=== PATIENT | male | born 1995 | race Caucasian/White ===

== ENCOUNTER 2017-10-25 18:12 | Emergency (ER) | payer SELFPAY ==
--- NOTE | 2017-10-25 21:33 | XR ---
EXAMINATION TYPE: XR chest 2V DATE OF EXAM: 10/25/2017 COMPARISON: 09/03/2015 HISTORY: Chest pain TECHNIQUE: Frontal and lateral views of the chest are obtained. FINDINGS: There is no focal air space opacity, pleural effusion, or pneumothorax seen. The cardiac silhouette size is within normal limits. The osseous structures are intact. IMPRESSION: No acute cardiopulmonary process.
[2017-10-25 21:41] VITALS: RESP 18
--- NOTE | 2017-10-25 22:05 | ED ---
General Adult HPI - General Chief complaint: Shortness of Breath Stated complaint: SOB/Cold Time Seen by Provider: 10/25/17 21:03 Source: patient Mode of arrival: ambulatory Limitations: no limitations - History of Present Illness Initial comments: 22-year-old male patient presents to the emergency department today for evaluation of a sharp stabbing pain in the left lung while breathing. He states that this started yesterday evening. States whenever he attempts to take a deep breath the pain shoots through to his back. He states very sharp pain. He denies any fevers or chills with this. States he was ill with upper respiratory symptoms and cough a couple of weeks ago. He denies any current cough or hemoptysis. He denies any sweats, nausea, vomiting, dizziness, or weakness. Patient denies any recent rash, shortness breath, abdominal pain, diarrhea, constipation, back pain, numbness, tingling, hematuria, dysuria, urinary urgency, urinary frequency, headache, visual changes, or any other complaints. - Related Data Previous Rx's Medication Instructions Recorded Ibuprofen [Motrin] 600 mg PO Q8HR PRN #30 tab 10/25/17 Allergies Allergy/AdvReac Type Severity Reaction Status Date / Time amoxicillin Allergy Unknown Verified 10/25/17 20:45 Childhood Penicillins Allergy Unknown Verified 10/25/17 20:45 Childhood Review of Systems ROS Statement: Those systems with pertinent positive or pertinent negative responses have been documented in the HPI. ROS Other: All systems not noted in ROS Statement are negative. Past Medical History Past Medical History: No Reported History History of Any Multi-Drug Resistant Organisms: None Reported Past Surgical History: Ear Surgery Additional Past Surgical History / Comment(s): cyst removal behind left ear 2004 Past Psychological History: Anxiety Smoking Status: Current every day smoker Past Alcohol Use History: Rare Past Drug Use History: Marijuana General Exam Limitations: no limitations General appearance: alert, in no apparent distress, other (This is a well- developed, well-nourished 22-year-old male patient in no acute distress. Vital signs upon presentation were temperature 98.4F, pulse 63, respirations 20, blood pressure 114/57, pulse ox 100% on room air.) Eye exam: Present: normal appearance, PERRL, EOMI. Absent: scleral icterus, conjunctival injection, periorbital swelling ENT exam: Present: normal exam, normal oropharynx, mucous membranes moist Respiratory exam: Present: normal lung sounds bilaterally. Absent: respiratory distress, wheezes, rales, rhonchi, stridor, chest wall tenderness Cardiovascular Exam: Present: regular rate, normal rhythm, normal heart sounds. Absent: systolic murmur, diastolic murmur, rubs, gallop, clicks GI/Abdominal exam: Present: soft, normal bowel sounds. Absent: distended, tenderness, guarding, rebound, rigid Neurological exam: Present: alert, oriented X3, CN II-XII intact Psychiatric exam: Present: normal affect, normal mood Skin exam: Present: warm, dry, intact, normal color. Absent: rash Course Vital Signs 10/25/17 10/25/17 10/25/17 18:48 21:33 22:13 Temperature 98.4 F 98.9 F Pulse Rate 63 65 69 Respiratory 20 18 18 Rate Blood Pressure 114/57 153/60 125/69 O2 Sat by Pulse 100 98 98 Oximetry EKG Findings - EKG Comments: EKG Findings:: EKG obtained at 2111 shows sinus bradycardia with a ventricular rate of 59, MT interval 126, QRS duration 96, QT 406, QTC 401. No evidence of ST elevation or depression. Medical Decision Making - Medical Decision Making 22-year-old male patient presented to the emergency department today for evaluation of left-sided chest pain with breathing. Physical examination is unremarkable, lungs are clear with good air movement. Patient is afebrile. Chest x-ray is clear for any acute cardiopulmonary process. EKG shows sinus bradycardia with no ectopy. Patient had a PERC score of 0. Symptoms are consistent with pleurisy. He is instructed take anti-inflammatory pain medication. He is instructed to follow up with his primary care physician for recheck in 1-2 days. Instructed to return here immediately for any new, worsening, or concerning symptoms. He verbalizes understanding and agrees with this plan. - Radiology Data Radiology results: report reviewed, image reviewed Two-view x-ray of the chest shows no focal airspace opacity, pleural effusion, or pneumothorax. The cardiac silhouette size is within normal limits. The osseous structures are intact. Impression by Dr. Archer shows no acute cardiopulmonary process. Disposition Clinical Impression: Pleurisy Disposition: HOME SELF-CARE Condition: Good Instructions: Pleurisy (ED) Additional Instructions: Take medications as directed. Increase fluids. Follow-up with your primary care physician for recheck in 1-2 days. Return here immediately for any new, worsening, or concerning symptoms. Prescriptions: Ibuprofen [Motrin] 600 mg PO Q8HR PRN #30 tab PRN Reason: Pain Referrals: Rosa M Samuels MD [Primary Care Provider] - 1-2 days Time of Disposition: 22:05
[2017-10-25 22:14] VITALS: BP 125/69; PULSE 69; TEMP 98.9
== END 2017-10-25 22:12 | disposition home or self-care (01) ==
LOC: EC 18:12
DX: R09.1 Pleurisy (principal); F17.200 Nicotine dependence, unspecified, uncomplicated; Z88.0 Allergy status to penicillin
CPT/HCPCS: 71046; 93005; 99285

== ENCOUNTER 2021-11-04 23:13 | Emergency (ER) | payer OTHER ==
[2021-11-04 23:18] VITALS: BP 145/82; PULSE 112; RESP 20; TEMP 100.5
[2021-11-04] MEDS ORDERED: ACETAMINOPHEN TAB 500 MG TAB PO STA (23:21)
--- NOTE | 2021-11-04 23:31 | XR ---
EXAMINATION TYPE: XR chest 2V DATE OF EXAM: 11/04/2021 COMPARISON: 10/25/2017 HISTORY: Cough TECHNIQUE: FINDINGS: Heart and mediastinum are normal. Lungs are clear. Diaphragm is normal. Bony thorax appears normal. IMPRESSION: Normal chest. No change.
--- NOTE | 2021-11-05 00:35 | ED ---
General Adult HPI - General Chief complaint: Upper Respiratory Infection Stated complaint: ENT, Abdominal/Back Pain Time Seen by Provider: 11/05/21 00:23 Source: patient Mode of arrival: ambulatory Limitations: no limitations - History of Present Illness Initial comments: 26-year-old male presents to the emergency room for a chief complaint of not feeling well. Patient states today he ate a chocolate for lunch and vomited. Patient states since then he has felt very fatigued and unwell. Patient states his just tested positive for COVID-19. Patient denies any fevers.Patient has no other complaints at this time including shortness of breath, chest pain, abdominal pain, nausea or vomiting, headache, or visual changes. - Related Data Previous Rx's Medication Instructions Recorded Ibuprofen [Motrin] 600 mg PO Q8HR PRN #30 tab 10/25/17 Allergies Allergy/AdvReac Type Severity Reaction Status Date / Time amoxicillin Allergy Unknown Verified 11/04/21 23:18 Childhood Penicillins Allergy Unknown Verified 11/04/21 23:18 Childhood Review of Systems ROS Statement: Those systems with pertinent positive or pertinent negative responses have been documented in the HPI. ROS Other: All systems not noted in ROS Statement are negative. Past Medical History Past Medical History: No Reported History History of Any Multi-Drug Resistant Organisms: None Reported Past Surgical History: Ear Surgery Additional Past Surgical History / Comment(s): cyst removal behind left ear 2004 Past Psychological History: Anxiety Smoking Status: Never smoker Past Alcohol Use History: Rare Past Drug Use History: Marijuana General Exam Limitations: no limitations General appearance: alert, in no apparent distress Head exam: Present: atraumatic Eye exam: Present: normal appearance, PERRL, EOMI. Absent: scleral icterus ENT exam: Present: normal exam, mucous membranes moist Neck exam: Present: normal inspection, full ROM. Absent: tenderness Respiratory exam: Present: normal lung sounds bilaterally. Absent: respiratory distress, wheezes Cardiovascular Exam: Present: regular rate, normal rhythm, normal heart sounds GI/Abdominal exam: Present: soft, normal bowel sounds. Absent: distended, tenderness Course Vital Signs 11/04/21 23:16 Temperature 100.5 F H Pulse Rate 112 H Respiratory 20 Rate Blood Pressure 145/82 O2 Sat by Pulse 98 Oximetry Medical Decision Making - Medical Decision Making Vitals are stable. Patient has a low-grade fever with mild or flex or tachycardia, given Tylenol. Tested positive for COVID-19. Chest x-ray negative for pneumonia. Patient does not qualify for antibody infusion given we are currently using [place] prioritization criteria. At this time patient will be discharged to follow-up with primary care and will return for any worsening symptoms. - Lab Data Lab Results 11/04/21 Range/Units 23:21 Coronavirus (PCR) Detected A (Not Detectd) Disposition Clinical Impression: COVID Disposition: HOME SELF-CARE Condition: Good Instructions (If sedation given, give patient instructions): Coronavirus Di 2018 (COVID-19) Additional Instructions: Take Motrin and Tylenol for fever. Take vitamin C, D, and zinc. Drink plenty of fluids. Follow-up with your doctor. Return to the emergency room for any worsening symptoms. Is patient prescribed a controlled substance at d/c from ED?: No Referrals: Ron Villareal MD [STAFF PHYSICIAN] - 1-2 days Time of Disposition: 00:35
== END 2021-11-05 00:42 | disposition home or self-care (01) ==
LOC: EC 23:13
DX: U07.1 COVID-19 (principal); F12.90 Cannabis use, unspecified, uncomplicated
CPT/HCPCS: 71046; 87635; 99283

== ENCOUNTER 2021-12-08 15:04 | Emergency (ER) | payer OTHER ==
[2021-12-08 15:50] LABS: Basophils # (A) 0.1 k/uL (0-0.2); Basophils % (A) 0 %; Eosinophils # (A) 0.2 k/uL (0-0.7); Eosinophils % (A) 2 %; HCT 47.6 % (39.0-53.0); HGB 16.2 gm/dL (13.0-17.5); Lymphocytes # (A) 0.7 k/uL (1.0-4.8); Lymphocytes % (A) 5 %; MCH 32.7 pg (25.0-35.0); MCHC 33.9 g/dL (31.0-37.0); MCV 96.2 fL (80.0-100.0); Mean Platelet Volume 7.7; Monocytes # (A) 0.5 k/uL (0-1.0); Monocytes % (A) 4 %; Neutrophils # (A) 11.7 k/uL (1.3-7.7); Neutrophils % (A) 88 %; Platelet Count 227 k/uL (150-450); RBC 4.95 m/uL (4.30-5.90); RDW 12.1 % (11.5-15.5); WBC 13.3 k/uL (3.8-10.6)
[2021-12-08 16:10] LABS: ALT 29 U/L (4-49); AST 24 U/L (17-59); African American GFR (CKD) >90 (>60 ml/min/1.73 sqM); Albumin 5.1 g/dL (3.5-5.0); Alkaline Phosphatase 76 U/L (38-126); Amylase 42 U/L (30-110); Anion Gap 13 mmol/L; Blood Urea Nitrogen 14 mg/dL (9-20); Calcium 10.1 mg/dL (8.4-10.2); Carbon Dioxide 24 mmol/L (22-30); Chloride 101 mmol/L (98-107); Glucose 121 mg/dL (74-99); Lipase 19 U/L (23-300); Non-African American GFR(CKD) >90 (>60 ml/min/1.73 sqM); Potassium 3.8 mmol/L (3.5-5.1); Sodium 138 mmol/L (137-145); Total Protein 8.3 g/dL (6.3-8.2)
[2021-12-08] MEDS ORDERED: ONDANSETRON ODT 4 MG TAB PO STA (18:45)
[2021-12-08] MEDS ORDERED: ACETAMINOPHEN TAB 325 MG TAB PO STA (18:45)
[2021-12-08] MEDS ORDERED: IBUPROFEN 600 MG TAB PO STA (18:50)
--- NOTE | 2021-12-08 18:53 | ED ---
General Adult HPI - General Chief complaint: Nausea/Vomiting/Diarrhea Stated complaint: Vomiting, Diarrhea Time Seen by Provider: 12/08/21 18:45 Source: patient, RN notes reviewed, old records reviewed Mode of arrival: ambulatory Limitations: no limitations - History of Present Illness Initial comments: Well-appearing 26-year-old male presents ambulatory to the emergency room with complaints of nausea, vomiting and diarrhea that started at 6 PM last night. Patient states that his and 1-year-old child were also sick yesterday with similar symptoms but have resolved today. He was concerned that this may be food poisoning. He has not had any Tylenol or Motrin today for fevers. He has no medical history. No surgical history. -: days(s) (1) Location: abdomen Severity scale (1-10): 4 Quality: sharp Consistency: intermittent Improves with: none Worsens with: none Associated Symptoms: fever/chills, nausea/vomiting, other (diarrhea) Treatments Prior to Arrival: none - Related Data Home Medications Medication Instructions Recorded Confirmed No Known Home Medications 12/08/21 12/08/21 Allergies Allergy/AdvReac Type Severity Reaction Status Date / Time amoxicillin Allergy Unknown Verified 12/08/21 19:38 Childhood mint Allergy Throat Verified 12/08/21 19:38 Swelling Penicillins Allergy Unknown Verified 12/08/21 19:38 Childhood Review of Systems ROS Statement: Those systems with pertinent positive or pertinent negative responses have been documented in the HPI. ROS Other: All systems not noted in ROS Statement are negative. Past Medical History Past Medical History: No Reported History History of Any Multi-Drug Resistant Organisms: None Reported Past Surgical History: Ear Surgery Additional Past Surgical History / Comment(s): cyst removal behind left ear 2004 Past Psychological History: Anxiety Smoking Status: Never smoker Past Alcohol Use History: Occasional Past Drug Use History: Marijuana General Exam Limitations: no limitations General appearance: alert, in no apparent distress Head exam: Present: atraumatic Eye exam: Present: normal appearance. Absent: scleral icterus, conjunctival injection ENT exam: Present: normal exam, normal oropharynx, mucous membranes moist Neck exam: Present: normal inspection, full ROM. Absent: tenderness, meningis mus, lymphadenopathy, thyromegaly Respiratory exam: Present: normal lung sounds bilaterally. Absent: respiratory distress Cardiovascular Exam: Present: tachycardia, normal heart sounds GI/Abdominal exam: Present: soft. Absent: distended, tenderness, guarding, rebound, rigid, mass Extremities exam: Present: normal capillary refill. Absent: tenderness, pedal edema Back exam: Present: normal inspection, full ROM. Absent: tenderness, CVA tenderness (R), CVA tenderness (L), rash noted Neurological exam: Present: alert, oriented X3, normal gait Psychiatric exam: Present: normal affect, normal mood Skin exam: Present: warm, dry, intact, normal color. Absent: cyanosis, diaphoretic, petechiae, pallor Course Vital Signs 12/08/21 12/08/21 12/08/21 15:32 19:04 19:32 Temperature 101.2 F H 98.6 F Pulse Rate 120 H 102 H 107 H Respiratory 20 18 16 Rate Blood Pressure 123/75 133/95 135/81 O2 Sat by Pulse 96 96 Oximetry Medical Decision Making - Medical Decision Making Well-appearing 26-year-old male presents with fever, nausea, vomiting and diarrhea that started at 6 PM last night. He states his and 1-year-old child were also sick yesterday with similar symptoms but have resolved today. White blood cell count is 13.3 likely related to his excessive vomiting and diarrhea over the past 20 hours. Patient denies abdominal pain. Abdomen is soft. Influenza and covid swabs are negative. Patient is tolerating oral fluids after zofran at this time. He was directed to return to the emergency room with any new or concerning symptoms including fever with right lower quadrant abdominal pain or inability keep any food or fluids down. Patient is agreeable to this plan of care. Case discussed with Dr. Sepulveda. Vital signs are stable at discharge - Lab Data Result diagrams: 12/08/21 15:42 12/08/21 15:42 Lab Results 12/08/21 12/08/21 12/08/21 Range/Units 15:42 15:42 15:42 WBC 13.3 H (3.8-10.6) k/uL RBC 4.95 (4.30-5.90) m/uL Hgb 16.2 (13.0-17.5) gm/dL Hct 47.6 (39.0-53.0) % MCV 96.2 (80.0-100.0) fL MCH 32.7 (25.0-35.0) pg MCHC 33.9 (31.0-37.0) g/dL RDW 12.1 (11.5-15.5) % Plt Count 227 (150-450) k/uL MPV 7.7 Neutrophils % 88 % Lymphocytes % 5 % Monocytes % 4 % Eosinophils % 2 % Basophils % 0 % Neutrophils # 11.7 H (1.3-7.7) k/uL Lymphocytes # 0.7 L (1.0-4.8) k/uL Monocytes # 0.5 (0-1.0) k/uL Eosinophils # 0.2 (0-0.7) k/uL Basophils # 0.1 (0-0.2) k/uL Sodium 138 (137-145) mmol/L Potassium 3.8 (3.5-5.1) mmol/L Chloride 101 (98-107) mmol/L Carbon Dioxide 24 (22-30) mmol/L Anion Gap 13 mmol/L BUN 14 (9-20) mg/dL Creatinine 0.77 (0.66-1.25) mg/dL Est GFR (CKD-EPI)AfAm >90 (>60 ml/min/1.73 sqM) Est GFR (CKD-EPI)NonAf >90 (>60 ml/min/1.73 sqM) Glucose 121 H (74-99) mg/dL Calcium 10.1 (8.4-10.2) mg/dL Total Bilirubin 1.0 (0.2-1.3) mg/dL AST 24 (17-59) U/L ALT 29 (4-49) U/L Alkaline Phosphatase 76 (38-126) U/L Total Protein 8.3 H (6.3-8.2) g/dL Albumin 5.1 H (3.5-5.0) g/dL Amylase 42 (30-110) U/L Lipase 19 L (23-300) U/L Coronavirus (PCR) Not Detected (Not Detectd) Influenza Type A RNA (Not Detectd) Influenza Type B (PCR) (Not Detectd) 12/08/21 Range/Units 18:52 WBC (3.8-10.6) k/uL RBC (4.30-5.90) m/uL Hgb (13.0-17.5) gm/dL Hct (39.0-53.0) % MCV (80.0-100.0) fL MCH (25.0-35.0) pg MCHC (31.0-37.0) g/dL RDW (11.5-15.5) % Plt Count (150-450) k/uL MPV Neutrophils % % Lymphocytes % % Monocytes % % Eosinophils % % Basophils % % Neutrophils # (1.3-7.7) k/uL Lymphocytes # (1.0-4.8) k/uL Monocytes # (0-1.0) k/uL Eosinophils # (0-0.7) k/uL Basophils # (0-0.2) k/uL Sodium (137-145) mmol/L Potassium (3.5-5.1) mmol/L Chloride (98-107) mmol/L Carbon Dioxide (22-30) mmol/L Anion Gap mmol/L BUN (9-20) mg/dL Creatinine (0.66-1.25) mg/dL Est GFR (CKD-EPI)AfAm (>60 ml/min/1.73 sqM) Est GFR (CKD-EPI)NonAf (>60 ml/min/1.73 sqM) Glucose (74-99) mg/dL Calcium (8.4-10.2) mg/dL Total Bilirubin (0.2-1.3) mg/dL AST (17-59) U/L ALT (4-49) U/L Alkaline Phosphatase (38-126) U/L Total Protein (6.3-8.2) g/dL Albumin (3.5-5.0) g/dL Amylase (30-110) U/L Lipase (23-300) U/L Coronavirus (PCR) (Not Detectd) Influenza Type A RNA Not Detected (Not Detectd) Influenza Type B (PCR) Not Detected (Not Detectd) Disposition Clinical Impression: Nausea vomiting and diarrhea, Fever Disposition: HOME SELF-CARE Condition: Good Instructions (If sedation given, give patient instructions): Acute Nausea and Vomiting (ED), Acute Diarrhea (ED) Additional Instructions: Increase your fluid intake. Follow-up with your primary care doctor next week. Return to the emergency room with any new or concerning symptoms including fever with right lower quadrant abdominal pain or inability to keep food or fluids down. Is patient prescribed a controlled substance at d/c from ED?: No Referrals: None,Stated [Primary Care Provider] - 1-2 days Time of Disposition: 19:34
[2021-12-08 19:33] VITALS: BP 135/81; PULSE 107; RESP 16; TEMP 98.6
[2021-12-08] MEDS ORDERED: ONDANSETRON 4 MG ODT STARTER PACK 2 TAB BTL PO STA (19:34)
== END 2021-12-08 19:44 | disposition home or self-care (01) ==
LOC: EC 15:04
DX: R19.7 Diarrhea, unspecified (principal); R11.2 Nausea with vomiting, unspecified; R50.9 Fever, unspecified; Z20.822 Contact with and (suspected) exposure to COVID-19; F41.9 Anxiety disorder, unspecified; F12.90 Cannabis use, unspecified, uncomplicated; Z88.0 Allergy status to penicillin
CPT/HCPCS: 36415; 80053; 82150; 83690; 85025; 87502; 87635; 99284

== ENCOUNTER 2022-03-19 01:09 | Emergency (ER) | payer OTHER ==
[2022-03-19 01:19] VITALS: TEMP 97.6
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
--- NOTE | 2022-03-19 02:15 | XR ---
EXAMINATION TYPE: XR knee complete LT DATE OF EXAM: 03/19/2022 COMPARISON: NONE HISTORY: Pain TECHNIQUE: 3 views FINDINGS: I see no fracture nor dislocation. Joint spaces are normal. No sign of joint effusion. IMPRESSION: Negative left knee exam.
[2022-03-19 02:56] VITALS: BP 136/90; PULSE 64; RESP 16
== END 2022-03-19 02:22 | disposition home or self-care (01) ==
LOC: EC 01:09
DX: S80.02XA Contusion of left knee, initial encounter (principal); Z88.0 Allergy status to penicillin; Z88.8 Allergy status to other drugs, medicaments and biological substances; W22.8XXA Striking against or struck by other objects, initial encounter
CPT/HCPCS: 99283

== ENCOUNTER 2022-08-07 21:06 | Emergency (ER) | payer OTHER ==
[2022-08-07 21:39] VITALS: BP 122/75; PULSE 66; RESP 18; TEMP 98.4
[2022-08-07] MEDS ORDERED: DIPH,PERTUS(ACELL)TETVAC-LF 0.5 ML VIAL IM ONE (23:18)
[2022-08-07] MEDS ORDERED: ACETAMINOPHEN TAB 325 MG TAB PO STA (23:18)
--- NOTE | 2022-08-07 23:25 | ED ---
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 No loss of consciousness. Patient states increased headache today. Did not take any Tylenol or Motrin prior to arrival. Unsure of his tetanus shot is up-to-date MD Complaint: head injury -: days(s) (1) Mechanism of Injury: other (hit head at work yesterday) Location: parietal Loss of Consciousness: no Previous Trauma to this Area: No Place: work Consistency: intermittent Other Injuries: none - Related Data Home Medications Medication Instructions Recorded Confirmed No Known Home Medications 12/08/21 12/08/21 Allergies/Adverse reactions: Allergies Allergy/AdvReac Type Severity Reaction Status Date / Time amoxicillin Allergy Unknown Verified 08/07/22 21:39 Childhood mint Allergy Throat Verified 08/07/22 21:39 Swelling Penicillins Allergy Unknown Verified 08/07/22 21:39 Childhood Review of Systems ROS Statement: Those systems with pertinent positive or pertinent negative responses have been documented in the HPI. ROS Other: All systems not noted in ROS Statement are negative. Past Medical History Past Medical History: No Reported History History of Any Multi-Drug Resistant Organisms: None Reported Past Surgical History: Ear Surgery Additional Past Surgical History / Comment(s): cyst removal behind left ear 2004 Past Psychological History: Anxiety Smoking Status: Never smoker Past Alcohol Use History: Occasional Past Drug Use History: Marijuana General Exam Limitations: no limitations General appearance: alert, in no apparent distress Head exam: Present: other (5 cm abrasion to the parietal scalp no active bleeding) Eye exam: Present: normal appearance. Absent: scleral icterus, conjunctival injection, periorbital swelling, periorbital tenderness ENT exam: Present: normal oropharynx, mucous membranes moist Neck exam: Present: full ROM. Absent: tenderness, meningismus Respiratory exam: Absent: respiratory distress, accessory muscle use Cardiovascular Exam: Present: regular rate Extremities exam: Present: normal capillary refill. Absent: pedal edema Neurological exam: Present: alert, oriented X3, CN II-XII intact, normal gait Expanded Patient oriented to: Present: person, place, time Speech: Present: fluid speech Cranial nerves: EOM's Intact: Normal, Gag Reflex: Normal, Tongue Deviation: Normal Cerebellar function: Finger to Nose: Normal, Heel to Pascual: Normal, Romberg: Normal Motor strength exam: RUE: 5, LUE: 5, RLE: 5, LLE: 5 Eye Response: (4) open spontaneously Motor Response: (6) obeys commands Verbal Response: (5) oriented Eduardo Total: 15 Psychiatric exam: Present: normal affect, normal mood Skin exam: Present: warm, dry, normal color. Absent: cyanosis, diaphoretic, petechiae, pallor Course Vital Signs 08/07/22 21:37 Temperature 98.4 F Pulse Rate 66 Respiratory 18 Rate Blood Pressure 122/75 O2 Sat by Pulse 97 Oximetry Medical Decision Making - Medical Decision Making Patient presents with headache and scalp abrasion after hitting head at work yesterday. No loss of consciousness. Patient has continued to have headache at site of injury. No focal neurological deficits. Gait is steady. Cranial nerves are intact. [place] head CT rule negative. vital signs are stable. Patient was given tetanus shot and tylenol. He was discharged home to take Tylenol, increase fluid intake and follow-up with his primary care Dr. Mercer next week. patient is agreeable to this plan of care. Disposition Clinical Impression: Scalp abrasion, Head injury Disposition: HOME SELF-CARE Condition: Good Instructions (If sedation given, give patient instructions): Head Injury (ED) Additional Instructions: Take Tylenol as needed for pain and discomfort. Follow-up with your primary care doctor on Wednesday. Return to the emergency room with any new or concerning symptoms including increased pain, vision changes, persistent nausea/vomiting or seizures. Is patient prescribed a controlled substance at d/c from ED?: No Referrals: None,Stated [Primary Care Provider] - 1-2 days Time of Disposition: 23:25
== END 2022-08-07 23:46 | disposition home or self-care (01) ==
LOC: EC 21:06
DX: S00.01XA Abrasion of scalp, initial encounter (principal); Z23 Encounter for immunization; Z88.0 Allergy status to penicillin; Z91.018 Allergy to other foods; Y99.0 Civilian activity done for income or pay; W50.0XXA Accidental hit or strike by another person, initial encounter
CPT/HCPCS: 90715

== ENCOUNTER 2023-02-11 20:04 | Emergency (ER) | payer OTHER ==
[2023-02-11 21:13] VITALS: RESP 18
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
[2023-02-11 22:26] VITALS: BP 131/84; PULSE 69; TEMP 98.6
== END 2023-02-11 22:26 | disposition home or self-care (01) ==
LOC: EC 20:04
DX: S70.02XA Contusion of left hip, initial encounter (principal); F12.90 Cannabis use, unspecified, uncomplicated; Z88.0 Allergy status to penicillin; Z91.018 Allergy to other foods; V43.62XA Car passenger injured in collision with other type car in traffic accident, initial encounter; Y92.410 Unspecified street and highway as the place of occurrence of the external cause
CPT/HCPCS: 99283

== ENCOUNTER 2023-04-06 06:03 | Emergency (ER) | payer OTHER ==
[2023-04-06] MEDS ORDERED: diphenhydrAMINE 50 MG/ML 1 ML VIAL IVP STA (06:18)
[2023-04-06] MEDS ORDERED: KETOROLAC 15 MG/ML 1 ML VIAL IVP STA (06:18)
[2023-04-06] MEDS ORDERED: SODIUM CHLORIDE 0.9% 1,000 ML IV STA (06:18)
[2023-04-06] MEDS ORDERED: DEXAMETHASONE SOD PHOSPHATE 10 MG/ML 1 ML VIAL IVP STA (06:18)
--- NOTE | 2023-04-06 06:44 | ED ---
Headache HPI - General Chief Complaint: Headache Stated Complaint: Headache Time Seen by Provider: 04/06/23 06:12 Source: patient, RN notes reviewed Mode of arrival: ambulatory Limitations: no limitations - History of Present Illness Initial Comments: This is a 27-year-old male who presents to the emergency department for a headache. States that he woke up with a headache this morning. Describes this as tightness that started in the back of his head and wrapped around to the front in a bandlike formation. Denies any history of migraines. He would not describe this as the worst headache of his life, and states that he has had headaches before that are similar. He has not taken anything for his symptoms. Denies any nausea/vomiting or sensitivity to light/sound. Denies any fevers, chills, sore throat, cough, dyspnea, chest pain, palpitations, abdominal pain, nausea, vomiting, diarrhea, or back pain. MD Complaint: headache - Related Data Previous Rx's Medication Instructions Recorded Ketorolac [Toradol] 10 mg PO Q6HR PRN #12 tab 04/06/23 Allergies Allergy/AdvReac Type Severity Reaction Status Date / Time amoxicillin Allergy Unknown Verified 04/06/23 06:09 Childhood mint Allergy Throat Verified 04/06/23 06:09 Swelling Penicillins Allergy Unknown Verified 04/06/23 06:09 Childhood Review of Systems ROS Statement: Those systems with pertinent positive or pertinent negative responses have been documented in the HPI. ROS Other: All systems not noted in ROS Statement are negative. Past Medical History Past Medical History: No Reported History History of Any Multi-Drug Resistant Organisms: None Reported Past Surgical History: Ear Surgery Additional Past Surgical History / Comment(s): cyst removal behind left ear 2004 Past Psychological History: Anxiety Smoking Status: Never smoker Past Alcohol Use History: Occasional Past Drug Use History: Marijuana General Exam Limitations: no limitations General appearance: alert, in no apparent distress Head exam: Present: atraumatic, normocephalic, normal inspection Eye exam: Present: normal appearance, PERRL, EOMI. Absent: scleral icterus, conjunctival injection, periorbital swelling Neck exam: Present: normal inspection, full ROM. Absent: tenderness, meningismus, lymphadenopathy Respiratory exam: Present: normal lung sounds bilaterally. Absent: respiratory distress, wheezes, rales, rhonchi, stridor Cardiovascular Exam: Present: regular rate, normal rhythm, normal heart sounds. Absent: systolic murmur, diastolic murmur, rubs, gallop, clicks Neurological exam: Present: alert, oriented X3, CN II-XII intact Psychiatric exam: Present: normal affect, normal mood Skin exam: Present: warm, dry, intact, normal color. Absent: rash Course Vital Signs 04/06/23 04/06/23 06:07 07:57 Temperature 97.9 F 98 F Pulse Rate 78 71 Respiratory 18 16 Rate Blood Pressure 129/81 124/72 O2 Sat by Pulse 96 97 Oximetry Medical Decision Making - Medical Decision Making This is a 27-year-old male who presents to the emergency department for a headache. Was pt. sent in by a medical professional or institution? @ -No Did you speak to anyone other than the patient for history? @ -No Did you review nursing and triage notes? @ -Yes, and I agree, it is accurate with regards to the patient's symptoms. Were old charts reviewed? @ -No Differential Diagnosis? @ -Differential Headache: Migraine, tension, cluster, carbon monoxide, central venous thrombosis, pension karma temporal arteritis, acute closure glaucoma, intercranial hemorrhage, mastoiditis, sinusitis, head injury, this is not meant to be an all-inclusive list. EKG interpreted by me (3pts min.)? @ -Not obtained X-rays interpreted by me (1pt min.)? @ -Not obtained CT interpreted by me (1pt min.)? @ -Not obtained U/S interpreted by me (1pt. min.)? @ -Not obtained What testing was considered but not performed? (CT, X-rays, U/S, labs)? Why? @ -None What meds were considered but not given? Why? @ -None Did you discuss the management of the patient with other professionals? @ -No Did you reconcile home meds? @ -No Was smoking cessation discussed for >3mins.? @ -No Was critical care preformed (if so, how long)? @ -No Were there social determinants of health that impacted care today? How? (Homelessness, low income, unemployed, alcoholism, drug addiction, transportation, low edu. Level, literacy, decrease access to med. care, alf, rehab)? @ -No Was there de-escalation of care discussed even if they declined? (Discuss DNR or withdrawal of care, Hospice)? @ -No What co-morbidities impacted this encounter? (DM, HTN, Smoking, COPD, CAD, Cancer, CVA, Hep., AIDS, mental health diagnosis, sleep apnea, morbid obesity)? @ -None Was patient admitted / discharged? @ -Discharged. Given that this headache was not very severe and because he has had headaches in the past, no laboratory studies or imaging was obtained. He was given a headache cocktail consisting of Toradol, Decadron, and Benadryl, with resolution of symptoms. The distribution of his pain is more so consistent with a tension headache. Patient overall felt substantially improved and stable for discharge home. Prescription for Toradol provided with dosing instructions reviewed for any additional headaches. Patient is instructed to take the Toradol with Tylenol if needed and avoid any other [id number] anti-inflammatories such as ibuprofen with the Toradol. Undiagnosed new problem with uncertain prognosis? @ -None Drug Therapy requiring intensive monitoring for toxicity (Heparin, Nitro, Insulin, Cardizem)? @ -None Were any procedures done? @ -None Diagnosis/symptom? @ -Headache Acute, or Chronic, or Acute on Chronic? @ -Acute Uncomplicated (without systemic symptoms) or Complicated (systemic symptoms)? @ -Uncomplicated Side effects of treatment? @ -None Exacerbation, Progression, or Severe Exacerbation] @ -Not applicable Poses a threat to life or bodily function? @ -No Return precautions reviewed in depth, the patient is instructed to return to the emergency department with any new, worsening, or concerning symptoms. Patient verbalized understanding. This case was discussed in detail with the attending ED physician, Dr. Atwood. Presentation, findings, and treatment plan discussed in detail as well. Disposition Clinical Impression: Tension headache Disposition: HOME SELF-CARE Instructions (If sedation given, give patient instructions): Tension Headache (ED), Acute Headache (ED) Additional Instructions: Return to the emergency department with any new, worsening, or concerning symptoms. You can try taking the Toradol as needed for any residual pain. If you choose to take this, do not take any other [id number] anti- inflammatories such as ibuprofen, take one or the other. You may take it with Tylenol. Follow up with your primary care provider in 1-2 days. Prescriptions: Ketorolac [Toradol] 10 mg PO Q6HR PRN #12 tab PRN Reason: Pain Is patient prescribed a controlled substance at d/c from ED?: No Referrals: Jalil Ramsey MD [Primary Care Provider] - 1-2 days
[2023-04-06 07:58] VITALS: BP 124/72; PULSE 71; RESP 16; TEMP 98
== END 2023-04-06 07:58 | disposition home or self-care (01) ==
LOC: EC 06:03
DX: G44.209 Tension-type headache, unspecified, not intractable (principal); Z86.59 Personal history of other mental and behavioral disorders; F12.90 Cannabis use, unspecified, uncomplicated; Z88.0 Allergy status to penicillin; Z91.018 Allergy to other foods
CPT/HCPCS: 99284; 96374; 96375 ×2; 96361; J1200; J1100; J1885